=== PATIENT | male | born 1990 | race Asian ===

== ENCOUNTER 2022-01-13 22:20 | Emergency (ER) | payer BC ==
[2022-01-13] MEDS ORDERED: Fluorescein Opthalmic Strip ONE (23:00)
[2022-01-13] MEDS ORDERED: Tetracaine 0.5% PF 4 ML BOT ONE (23:00)
== END 2022-01-13 23:22 | disposition home or self-care (01) ==
LOC: CSHERS 22:20
DX: H57.12 Ocular pain, left eye (principal)
CPT/HCPCS: 99283